=== PATIENT | female | born 1955 | race Caucasian/White ===

== ENCOUNTER 2020-10-16 15:07 | Outpatient (CLI) | payer MEDICARE, OTHER | END 2020-10-16 15:08 | disposition home or self-care (01) | LOC: COV 15:07 | PROVIDERS: ATTEND Surgery | DX: Z01.812 Encounter for preprocedural laboratory examination (principal); R19.03 Right lower quadrant abdominal swelling, mass and lump; Z20.822 Contact with and (suspected) exposure to COVID-19 ==

== ENCOUNTER 2020-10-20 08:31 | Day surgery (SDC) | payer MEDICARE, OTHER ==
[~2020-10-20 08:31] MED LIST: BUPIVACAINE 0.25% PF 30 ML VIAL ONE; ceFAZolin 2 GM/50 ML 2 GM/50 ML BAG IV ONE
[2020-10-20] MEDS ORDERED: LACTATED RINGERS 1,000 ML IV ONE ×2 (09:03→10:35)
[2020-10-20] MEDS ORDERED: MIDAZOLAM 2 MG/2 ML VIAL ONE (09:14)
[2020-10-20] MEDS ORDERED: fentaNYL 100 MCG/2 ML VIAL ONE (09:15)
[2020-10-20] MEDS ORDERED: PROPOFOL 200 MG/20 ML VIAL IVP ONE (09:15)
[2020-10-20] MEDS ORDERED: LIDOCAINE-MPF 2% 5 ML VIAL ONE (09:15)
[2020-10-20] MEDS ORDERED: SCOPOLAMINE PATCH TOP ONE (09:17)
[2020-10-20] MEDS ORDERED: HYDROmorphone 0.5 MG/0.5 ML SYRINGE IVP PRN (09:19)
[2020-10-20] MEDS ORDERED: MORPHINE 2 MG/ML CARPUJECT IVP PRN (09:19)
[2020-10-20] MEDS ORDERED: ePHEDrine 50 MG/ML VIAL IVP PRN (09:19)
[2020-10-20] MEDS ORDERED: NALOXONE 0.4 MG/ML VIAL IVP PRN (09:19)
[2020-10-20] MEDS ORDERED: ATROPINE ABBOJECT 1 MG/10 ML SYRINGE IVP PRN (09:19)
[2020-10-20] MEDS ORDERED: fentaNYL 100 MCG/2 ML VIAL IVP PRN (09:19)
[2020-10-20] MEDS ORDERED: METOCLOPRAMIDE 10 MG/2 ML VIAL IVP PRN (09:19)
[2020-10-20] MEDS ORDERED: ONDANSETRON 4 MG/2 ML VIAL IVP PRN (09:19)
--- NOTE | 2020-10-20 09:21 | ANESTHESIA ---
Pre-Anesthesia VS, & Labs - Diagnosis right groin repair - Procedure right groin lumpectomy, possible inguinal hernia repair Vital Signs: Temp Pulse Resp BP Pulse Ox 36.7 C 75 16 169/74 H 99 10/20/20 08:34 10/20/20 08:34 10/20/20 08:34 10/20/20 08:34 10/20/20 08:34 Height: 5 ft 3 in Weight (kg): 67.9 kg Body Mass Index: 26.5 BMI Classification: Overweight - NPO >8 hours - Is Patient ?: No - Lab Results Lab results reviewed: Yes Home Medications and Allergies Home Medications: Ambulatory Orders Fluticasone [Flonase] 1 sprays MALINA BID PRN 10/15/20 Loratadine [Allergy Relief] 10 mg PO DAILY PRN 10/15/20 Active Medications Scopolamine HBr (Scopolamine Patch) 1 patch TOP Q3D AMALIA Fluticasone [Flonase] 1 sprays MALINA BID PRN 10/15/20 Loratadine [Allergy Relief] 10 mg PO DAILY PRN 10/15/20 Allergies/Adverse Reactions: Allergies Allergy/AdvReac Type Severity Reaction Status Date / Time No Known Drug Allergies Allergy Verified 10/15/20 11:14 Anes History & Medical History - Anesthetic History Anesthesia Complications: reports: Post-Operative Nausea/Vomiting Family history of Anesthesia Complications: Denies Family history of Malignant Hyperthermia: Denies - Medical History Cardiovascular: reports: None Pulmonary: reports: None Gastrointestinal: reports: None Urinary: reports: None Neuro: reports: Motion sickness Musculoskeletal: reports: None Endocrine/Autoimmune: reports: None Skin: reports: None - Surgical History General: reports: Colonoscopy Gynecologic: reports: Tubal ligation, Other Exam General: Alert, Oriented x3, Cooperative, No acute distress Dental: WNL Mouth Openin Fingerbreadth Neck Mobility: Normal Mallampati classification: I Respiratory: Lungs clear, Normal breath sounds, No respiratory distress Cardiovascular: Regular rate, Normal S1, Normal S2, No murmurs Plan Anesthesia Type: General Consent for Procedure(s) Verified and Reviewed: Yes Code Status: Attempt Resuscitation ASA classification: 1-Healthy patient Is this case an emergency?: No
[2020-10-20] MEDS ORDERED: ONDANSETRON 4 MG/2 ML VIAL ONE (09:34)
[2020-10-20] MEDS ORDERED: DEXAMETHASONE 4 MG/ML VIAL ONE (09:34)
[2020-10-20] MEDS ORDERED: BUPIVACAINE 0.25% PF 30 ML VIAL SUBQ ONE ×2 (09:41→10:19)
[2020-10-20] MEDS ORDERED: LACTATED RINGERS 1,000 ML IV SCH (10:00)
[2020-10-20] MEDS ORDERED: SCOPOLAMINE PATCH TOP SCH (10:00)
--- NOTE | 2020-10-20 10:41 | OPERATIVE REPORT ---
Operative Report - General Procedure Date: 10/20/20 Planned Procedure: open right inguinal exploration and possible hernia repair Pre-Op Diagnosis: mass right inguinal, possible incarcerated rigth inguinal hernia Procedure Performed: open repair incarcerated right femoral hernia Post Op Diagnosis: incarcerated right femoral hernia - Procedure Note Primary Surgeon: erna rivera Anesthesia Technique: General LMA Pathology: tissue not sent Estimated Blood Loss (mL): 0 Findings: as above Complications: none
[2020-10-20] MEDS ORDERED: HYDROcod/ACETAM 5/325 MG TABLET PO PRN (10:43)
--- NOTE | 2020-10-20 11:04 | OPERATIVE REPORT ---
DATE OF SERVICE: 10/20/2020 Physician: Sukh Donovan MD PREOPERATIVE DIAGNOSES: Right inguinal mass, possible incarcerated right inguinal hernia. POSTOPERATIVE DIAGNOSES: 1. Right inguinal mass. 2. Incarcerated right femoral hernia. PROCEDURE: Right inguinal exploration and repair of incarcerated right femoral hernia. SURGEON: Sukh Donovan MD. ENERGY AND SUSTAINABILITY MANAGER: None. ANESTHESIA: 1. Laryngeal mask anesthesia. 2. Local anesthesia with Marcaine. COMPLICATIONS: None. ESTIMATED BLOOD LOSS: None. COMPLICATIONS: None. DRAINS: None. FINDINGS: A 5 mm right femoral hernia with incarcerated approximately 3 x 4 cm of mostly hernia sac with serous fluid. SPECIMEN: None. COMPLICATIONS: None. PROSTHETIC: A 1 x 3 inch Polypropylene mesh. INDICATIONS FOR PROCEDURE: The patient is a healthy, active 64-year-old who noticed right groin disc omfort and a lump a few weeks ago. She presents for exploration and possible hernia repair. Risks d iscussed, alternatives discussed, all questions answered, and consent obtained. DETAILS OF THE PROCEDURE: The patient was properly identified, brought to the operating room, and pl aced in supine position. She voided prior to surgery. Laryngeal mask anesthesia was induced. Seque ntial compression devices were placed. She was prepped and draped in a sterile fashion, given preope rative antibiotics. Local anesthetic was given throughout the procedure. A 3.5 to 4 cm incision was made in the direction of Fay's lines over the palpable right inguinal mass. Preoperatively, in t he office, she was thought to have an inguinal hernia. After induction of anesthesia, this was quite apparent a femoral hernia. Dissection proceeded with cutting current. Small superficial vein was i dentified, clamped, divided, and tied with 3-0 Vicryl. Dissection proceeded down to the incarcerated femoral hernia sac. It was mobilized away from the surrounding tissue down to the shelving edge of the inguinal ligament. The incarcerated sac tissue obviously had serous fluid. It was opened. The hernia sac sealed close to the base. The base of the hernia sac was then carefully opened with caute ry. A small aspect of omentum was present. The hernia sac was removed. Hemostasis was assured. A 1 x 3 inch polypropylene mesh was rolled into a plug and placed into the defect. The mesh was lightl y secured to the inguinal ligament with interrupted 0 Ethibond sutures. Subcutaneous tissue was clos ed over the mesh with interrupted 2-0 Vicryl suture followed by an interrupted 3-0 Vicryl suture. Bu ried interrupted subdermal 3-0 Vicryl sutures were then placed. Skin was closed with a running 4-0 M onocryl subcuticular suture. A dressing was applied. She tolerated the procedure very well. TD: 10/20/2020 11:03
--- NOTE | 2020-10-20 11:05 | ANESTHESIA POST OP EVALUATION ---
Anesthesia Post Eval - Post Anesthesia Eval Vitals: Last Vital Signs Temp 36.5 C 10/20/20 11:00 Pulse 73 10/20/20 11:00 Resp 16 10/20/20 11:00 BP 137/79 H 10/20/20 11:00 Pulse Ox 97 10/20/20 11:00 CV Function Including HR & BP: Stable Pain Control: Satisfactory Nausea & Vomiting: Negative Mental Status: Baseline Respiratory Status: Airway Patent Hydration Status: Satisfactory Anesthesia Complications: None
[2020-10-20] MEDS ORDERED: HYDROcod/ACETAM 5/325 MG TABLET ONE (11:24)
[2020-10-20 11:41] VITALS: BP 132/74
== END 2020-10-20 08:32 | disposition home or self-care (01) ==
LOC: SDS 08:31
PROVIDERS: ATTEND Surgery
PROC: 0YU70JZ Supplement Right Femoral Region with Synthetic Substitute, Open Approach (ICD-10-PCS; principal; 2020-10-20 09:45)
DX: K41.30 Unilateral femoral hernia, with obstruction, without gangrene, not specified as recurrent (principal); E66.3 Overweight; Z68.26 Body mass index [BMI] 26.0-26.9, adult
CPT/HCPCS: 49553; A9270; C1781; J0690; J3490; J7120

== ENCOUNTER 2021-08-02 07:26 | Day surgery (SDC) | payer MEDICARE, OTHER ==
[2021-08-02] MEDS ORDERED: LACTATED RINGERS 1,000 ML IV ONE ×2 (07:52→10:16)
--- NOTE | 2021-08-02 08:23 | ANESTHESIA ---
Pre-Anesthesia VS, & Labs - Diagnosis screening - Procedure colonoscopy Vital Signs: Temp Pulse Resp BP Pulse Ox 37.1 C 96 17 166/98 H 100 08/02/21 07:54 08/02/21 07:54 08/02/21 07:54 08/02/21 07:54 08/02/21 07:54 Height: 5 ft 3 in Weight (kg): 67 kg Body Mass Index: 26.2 BMI Classification: Overweight - NPO >8 hours - Is Patient ?: No - Lab Results Lab results reviewed: No Home Medications and Allergies Home Medications: Ambulatory Orders Atorvastatin [Lipitor] 10 mg ORAL DAILY 07/30/21 Losartan Potassium 25 mg ORAL DAILY 07/30/21 Fluticasone [Flonase] 1 sprays MALINA DAILY 10/15/20 Atorvastatin [Lipitor] 10 mg ORAL DAILY 07/30/21 Losartan Potassium 25 mg ORAL DAILY 07/30/21 Allergies/Adverse Reactions: Allergies Allergy/AdvReac Type Severity Reaction Status Date / Time No Known Drug Allergies Allergy Verified 10/15/20 11:14 Anes History & Medical History - Anesthetic History Anesthesia Complications: reports: Post-Operative Nausea/Vomiting Family history of Anesthesia Complications: Denies Family history of Malignant Hyperthermia: Denies - Medical History Cardiovascular: reports: Hypertension, High cholesterol Pulmonary: reports: None Gastrointestinal: reports: None Urinary: reports: None Neuro: reports: Motion sickness Musculoskeletal: reports: None Endocrine/Autoimmune: reports: None Skin: reports: None - Surgical History General: reports: Colonoscopy, Other Gynecologic: reports: Tubal ligation, Other Exam General: Alert, Oriented x3, Cooperative, No acute distress Dental: WNL Mouth Openin Fingerbreadth Neck Mobility: Normal Mallampati classification: I Plan Anesthesia Type: General, Total IV Consent for Procedure(s) Verified and Reviewed: Yes Code Status: Attempt Resuscitation ASA classification: 2-Mild systemic disease Is this case an emergency?: No
[2021-08-02] MEDS ORDERED: PROPOFOL 500 MG/50 ML 500 MG/50 ML VIAL ONE (09:06)
[2021-08-02] MEDS ORDERED: PROPOFOL 200 MG/20 ML VIAL IVP ONE (09:07)
[2021-08-02 10:34] VITALS: BP 107/67
--- NOTE | 2021-08-02 12:23 | ANESTHESIA POST OP EVALUATION ---
Anesthesia Post Eval - Post Anesthesia Eval Vitals: Last Vital Signs Temp 36.4 C L 08/02/21 10:14 Pulse 68 08/02/21 10:33 Resp 17 08/02/21 10:33 BP 107/67 08/02/21 10:33 Pulse Ox 99 08/02/21 10:33 CV Function Including HR & BP: Stable Pain Control: Satisfactory Nausea & Vomiting: Negative Mental Status: Baseline Respiratory Status: Airway Patent Hydration Status: Satisfactory Anesthesia Complications: None
== END 2021-08-02 07:27 | disposition home or self-care (01) ==
LOC: SDS 07:26
PROVIDERS: ATTEND Surgery
PROC: 0DBN8ZZ Excision of Sigmoid Colon, Via Natural or Artificial Opening Endoscopic (ICD-10-PCS; 2021-08-02)
PROC: 0DBN8ZZ Excision of Sigmoid Colon, Via Natural or Artificial Opening Endoscopic (ICD-10-PCS; 2021-08-02)
PROC: 0DBH8ZZ Excision of Cecum, Via Natural or Artificial Opening Endoscopic (ICD-10-PCS; principal; 2021-08-02 08:30)
DX: Z12.11 Encounter for screening for malignant neoplasm of colon (principal); D12.0 Benign neoplasm of cecum; D12.5 Benign neoplasm of sigmoid colon; K64.8 Other hemorrhoids; K57.30 Diverticulosis of large intestine without perforation or abscess without bleeding
CPT/HCPCS: 45380; 45385; J7120